=== PATIENT | female | born 1970 | race Caucasian/White ===

== ENCOUNTER 2016-10-09 04:20 | Emergency (ER) ==
[2016-10-09 04:36] VITALS: BP 127/77
[2016-10-09] MEDS ORDERED: TORADOL IM ONE (05:29)
[2016-10-09] MEDS ORDERED: PERCOCET-10 PO ONE (05:30)
--- NOTE | 2016-10-09 05:32 | PROVIDER DOCUMENTATION ---
HPI-EENT General - General Chief Complaint: Toothache Stated Complaint: TOOTHACHE Time Seen by Provider: 10/09/16 04:47 Source: patient Allergies/Adverse Reactions: Patient Allergies Allergy/AdvReac Type Severity Reaction Status Date / Time diphenhydramine HCl * Allergy SWELLING Verified 08/05/16 22:22 [From Benadryl] promethazine HCl * Allergy RASH Verified 08/05/16 22:22 [From Phenergan] Home Medications: Home Medication List Medication Instructions Recorded Confirmed Last Taken Type Gabapentin [Neurontin] 1,200 mg PO HS 06/04/15 10/09/16 1 Day Ago History Pramipexole [Mirapex] 6 mg PO HS 06/04/15 10/09/16 1 Day Ago History Duloxetine [Cymbalta] 60 mg PO HS 08/25/15 10/09/16 1 Day Ago History Alprazolam [Xanax] 1 mg PO BID PRN PRN 05/04/16 10/09/16 07/09/16 History Diphenoxylate/Atropine [Lomotil] 1 tab PO PRN PRN 07/09/16 10/09/16 Unknown History Liraglutide [Victoza] 0.3 ml SUBQ DAILY #5 pen.injctr 07/09/16 10/09/16 Unknown Rx Ondansetron [Zofran Odt] 4 mg PO Q4-6H PRN PRN #12 07/09/16 10/09/16 Unknown Rx tab.rapdis Fluconazole [Diflucan] 150 mg PO DAILY #2 tablet 07/24/16 10/09/16 Unknown Rx Clindamycin [Cleocin] 300 mg PO Q6HR #40 capsule 08/05/16 10/09/16 Unknown Rx - History of Present Illness-EENT General EENT Location: reports: mouth (dental) Quality of Pain: reports: aching Severity: reports: moderate Onset/Duration: reports: other (chronic) Timing: reports: still present Prearrival Treatment: Initiated prescription meds (clindamycin) Associated Symptoms: reports: facial pain/swelling Similar Symptoms Previously?: Yes Recently seen or treated by another doctor?: Yes (frequent ER visits) - Eyes Apparent Injury?: No - Ears Ear Problem Symptoms: reports: none Ear Problem Context: reports: none - Throat/Dental Throat/Dental Problem Symptoms: reports: toothache. denies: jaw pain, sore throat, swelling of jaw/face, trouble breathing, throat swelling, unable to swallow Throat/Dental Problem Context: reports: dental decay Recently seen a dentist or have an appointment?: No ("don't have the money") Review of Systems - Adult - REVIEW OF SYSTEMS - ADULT Constitutional: reports: no symptoms reported Eyes: reports: no symptoms reported Ears, Nose, Mouth & Throat: reports: mouth/dental pain Cardiovascular: reports: no symptoms reported Respiratory: reports: no symptoms reported Gastrointestinal: reports: no symptoms reported Genitourinary: reports: no symptoms reported Musculoskeletal: reports: no symptoms reported Integumentary: reports: no symptoms reported Neurological: reports: no symptoms reported Psychiatric: reports: no symptoms reported Endocrine: reports: no symptoms reported Hematologic/Lymphatic: reports: no symptoms reported Allergic/Immunologic: reports: no symptoms reported All Other Systems: Reviewed and Negative Past History - Adult - PAST MEDICAL HISTORY-ADULT Review of Records: reports: Old Records Reviewed, Nursing Assessment Review, Medications Reviewed, Social history reviewed & non-contributory. Major Childhood Illnesses: reports: denies history Cardiovascular: reports: denies history Respiratory: reports: asthma Gastrointestinal: reports: cancer (rectal) Obstetrical/Gynecological: reports: denies history Genitourinary: reports: denies history Musculoskeletal: reports: fibromyalgia Neurological: reports: other (fibromyalgia) Endocrine/Immune: reports: Diabetes Other Conditions: reports: denies history - PRIOR SURGERIES/PROCEDURES Surgical/Procedure History: reports: appendectomy, cholecystectomy, hysterectomy , indwelling device (port), hernia repair, other (rectal polyps) - PRIOR HOSPITALIZATIONS Prior Hospitalizations: reports: for similar symptoms - IMMUNIZATION STATUS Childhood Immunizations: See Nurse Assessment Flu Vaccine: See Nurse Assessment - FAMILY HISTORY Family History: reviewed, not pertinent Physical Exam- EENT - Physical Exam EENT Initial Vital Signs Reviewed: Yes General Appearance: mild distress Eye Exam: bilateral eye: normal inspection, PERRL, EOMI Ear Exam: bilateral ear: auricle normal, canal normal, TM normal Nasal Exam: normal inspection Throat Exam: pharynx normal, dental tenderness (R upper molar). negative: mandibular swelling, maxillary swelling, pharynx swelling Neck: non-tender, full range of motion, supple. negative: lymphadenopathy Respiratory: chest non-tender, lungs clear Cardiovascular: normal peripheral pulses, regular rate, rhythm, no edema Abdominal Exam: normal bowel sounds, non tender, soft Lymphatic: no adenopathy Back Exam: no CVA tenderness Extremity: normal range of motion, non-tender, normal gait, normal inspection, no pedal edema Integumentary: normal color, normal turgor Neurologic: grossly normal, no motor/sensory deficits Departure - Departure Time of Disposition Order: 05:36 DIAGNOSIS: Chronic dental pain Disposition: HOME 01 Certified Medical Emergency: Urgent Condition: Fair Additional Instructions: CALL [facility] OR FREE D[facility] CL[facility]IC IN [place] FOR CARE AT REDUCED
== END 2016-10-09 06:01 | disposition home or self-care (01) ==
LOC: P.ED 04:20
DX: G89.29 Other chronic pain (principal); K08.89 Other specified disorders of teeth and supporting structures; K02.9 Dental caries, unspecified; M79.7 Fibromyalgia; E11.9 Type 2 diabetes mellitus without complications; Z79.899 Other long term (current) drug therapy; Z85.048 Personal history of other malignant neoplasm of rectum, rectosigmoid junction, and anus
CPT/HCPCS: 96372; J1885

== ENCOUNTER 2017-03-14 01:38 | Observation (INO) ==
[2017-03-14] MEDS ORDERED: ASPIRIN PO STA (01:50)
[2017-03-14] MEDS ORDERED: NITROGLYCERIN TOP ONE (01:56)
[2017-03-14 02:09] LABS: MANUAL DIFF NEEDED? NO
--- NOTE | 2017-03-14 02:10 | EKG Report ---
Test Performed on : 03/14/2017 01:48:31 AM Test Reason : cp Blood Pressure : / mmHG Vent. Rate : 107 BPM Atrial Rate : 107 BPM P-R Int : 148 ms QRS Dur : 086 ms QT Int : 358 ms P-R-T Axes : 045 038 073 degrees QTc Int : 477 ms Sinus tachycardia. Otherwise normal ECG When compared with ECG of 29-APR-2014 13:34, No significant change was found Unconfirmed Result
[2017-03-14 02:13] LABS: BASO% 0.2 % (0.0-0.8); EOS# 0.12 X1000 (0.0-0.7); EOS% 1.3 % (0.0-10.0); HEMATOCRIT 43.2 % (37.0-47.0); IMM GRAN# 0.02 X1000 (0.0-0.04); IMM GRAN% 0.2 % (0.0-0.5); LYMPH# 1.99 X1000 (1.2-3.4); LYMPH% 21.9 % (20.5-51.1); MCH 30.7 PG (27-31); MCHC 34.7 g/dL (33-37); MCV 88.3 FL (81-99); MONO# 0.58 X1000 (0.11-0.59); MONO% 6.4 % (1.7-9.3); PLT 203 X1000 (130-400); RBC 4.89 XMIL (4.2-5.4)
[2017-03-14 02:26] LABS: PROTIME 11.3 Seconds (12.1-15.5)
[2017-03-14 02:27] LABS: AGAP 13; ALBUMIN 3.8 g/dL (3.5-5.0); ALKALINE PHOSPHATASE 121 U/L (32-104); BUN 10 mg/dL (8-22); CALCIUM 9.2 mg/dL (8.8-10.2); CHLORIDE 98 mmol/L (98-107); CK PROFILE 59 U/L (24-173); COSMO 277; GOT 151 U/L (10-30); GPT 38 U/L (10-36); MAGNESIUM 1.6 mg/dL (1.5-2.7); POTASSIUM 3.3 mmol/L (3.5-5.1); PTT PL 24.3 Seconds (22.6-43.9); SODIUM 134 mmol/L (136-145); TCO2 23 mmol/L (25-35); TOTAL PROTEIN 6.1 g/dL (6.3-8.3)
[2017-03-14 02:31] LABS: INR 0.76 (0.86-1.15)
--- NOTE | 2017-03-14 03:14 | PROVIDER DOCUMENTATION ---
HPI-Chest Pain - General Chief Complaint: Chest Pain Stated Complaint: chest pain Time Seen by Provider: 03/14/17 02:00 Source: patient Allergies/Adverse Reactions: Patient Allergies Allergy/AdvReac Type Severity Reaction Status Date / Time diphenhydramine HCl * Allergy SWELLING Verified 10/19/16 14:04 [From Benadryl] promethazine HCl * Allergy RASH Verified 10/19/16 14:04 [From Phenergan] Home Medications: Home Medication List Medication Instructions Recorded Confirmed Last Taken Type Pramipexole [Mirapex] 6 mg PO HS 06/04/15 03/14/17 1 Day Ago History Alprazolam [Xanax] 1 mg PO BID PRN PRN 05/04/16 03/14/17 07/09/16 History Liraglutide [Victoza] 0.3 ml SUBQ DAILY #5 pen.injctr 07/09/16 03/14/17 Unknown Rx Ondansetron [Zofran Odt] 4 mg PO Q4-6H PRN PRN #12 07/09/16 03/14/17 Unknown Rx tab.rapdis - History of Present Illness-CP Location: reports: epigastric Chest Pain Radiation: reports: back Quality of Pain: reports: sharp Severity in ED: mild Onset/Duration: just prior to arrival Timing: gone now, resolved prior to arrival (AFTER GIVEN NTG BY EMS) Modifying Factors: improves with: nothing Associated Symptoms: reports: nausea, shortness of breath Nitro Today/Relief: provided by EMS Aspirin Treatment Today: provided by EMS Prior Chest Pain/Cardiac Workup: reports: no prior cardiac workup Similar Symptoms Previously?: No Recently Seen Here or By Another Healthcare Provider: No Review of Systems - Adult - REVIEW OF SYSTEMS - ADULT Constitutional: reports: no symptoms reported Eyes: reports: no symptoms reported Ears, Nose, Mouth & Throat: reports: no symptoms reported Cardiovascular: reports: chest pain Respiratory: reports: no symptoms reported Gastrointestinal: reports: no symptoms reported Genitourinary: reports: no symptoms reported Musculoskeletal: reports: no symptoms reported Integumentary: reports: no symptoms reported Neurological: reports: no symptoms reported Psychiatric: reports: no symptoms reported Endocrine: reports: no symptoms reported Hematologic/Lymphatic: reports: no symptoms reported Allergic/Immunologic: reports: no symptoms reported All Other Systems: Reviewed and Negative Past History - Adult - PAST MEDICAL HISTORY-ADULT Review of Records: reports: Old Records Reviewed, Nursing Assessment Review, Medications Reviewed, Social history reviewed & non-contributory. Major Childhood Illnesses: reports: denies history Cardiovascular: reports: denies history Respiratory: reports: asthma Gastrointestinal: reports: cancer (rectal) Obstetrical/Gynecological: reports: denies history Genitourinary: reports: denies history Musculoskeletal: reports: fibromyalgia Neurological: reports: other (fibromyalgia) Endocrine/Immune: reports: Diabetes Diabetes Type: Type 2 Other Conditions: reports: denies history - PRIOR SURGERIES/PROCEDURES Surgical/Procedure History: reports: appendectomy, cholecystectomy, hysterectomy , indwelling device (port), hernia repair, other (rectal polyps) - PRIOR HOSPITALIZATIONS Prior Hospitalizations: reports: for similar symptoms - IMMUNIZATION STATUS Childhood Immunizations: See Nurse Assessment Flu Vaccine: See Nurse Assessment - FAMILY HISTORY Family History: reviewed, not pertinent Physical Exam-General - PHYSICAL EXAM-ADULT Initial Vital Signs Reviewed: Yes - CONSTITUTIONAL General Appearance: no apparent distress, lethargic - EYES Eyes: PERRL/EOMI, pink conjunctivae - HEAD, EARS, NOSE, MOUTH & THROAT HENMT: normocephalic/atraumatic, moist mucous membranes, normal ENT inspection, TMs normal, pharynx normal - NECK Neck: non-tender, full range of motion, supple - RESPIRATORY Respiratory: lungs clear, normal breath sounds - CARDIOVASCULAR Cardiovascular: normal peripheral pulses, regular rate, rhythm, no edema, no gallop, no JVD - GASTROINTESTINAL (ABDOMEN) Abdominal Exam: normal bowel sounds, non tender, soft. negative: tenderness - LYMPHATIC Lymphatic: no adenopathy - MUSCULOSKELETAL Back Exam: no CVA tenderness, no vertebral tenderness Extremity: normal range of motion, non-tender, normal gait Peripheral Pulses: radial (R): 3+, radial (L): 3+ - SKIN Integumentary: normal color, normal turgor, warm/dry - NEUROLOGIC Neurologic: grossly normal, no motor/sensory deficits - PSYCHIATRIC Psych/Mental Status: normal thought content, normal thought process, other ( VAGUE ANSWERS, SEEMS DRUGGED (though just woke up)) Progress - PLAN OF CARE/RESULTS Progress/Plan/Lab Results: Vital Signs - 8 hr 03/14/17 01:40 03/14/17 02:52 03/14/17 04:09 Temperature 98.5 F 98.2 F 98 F Pulse Rate 107 H 101 H 99 H Respiratory Rate 18 18 18 Blood Pressure 98/67 114/68 81/62 O2 Sat by Pulse Oximetry 100 100 97 Laboratory Results - last 24 hr 03/14/17 03/14/17 03/14/17 02:00 02:00 02:00 WBC RBC Hgb Hct MCV MCH MCHC RDW Std Deviation Plt Count MPV Immature Gran % (Auto) Neut % (Auto) Lymph % (Auto) [place] % (Auto) Eos % (Auto) Baso % (Auto) Immature Gran # (Auto) Neut # (Auto) Lymph # (Auto) [place] # (Auto) Eos # (Auto) Baso # (Auto) PT INR APTT (Factor Assay) D-Dimer Sodium 134 L Potassium 3.3 L Chloride 98 Carbon Dioxide 23 L Anion Gap 13 BUN 10 Creatinine 0.5 Estimated GFR/1.73 m2 > 60 BUN/Creatinine Ratio 20 Glucose 281 H Estimat Average Glucose Hemoglobin A1c Calculated Osmolality 277 Calcium 9.2 Magnesium 1.6 Total Bilirubin 0.90 AST 151 H ALT 38 H Alkaline Phosphatase 121 H Creatine Kinase 59 Troponin T < 0.010 Hlq-Q-Olxanoiwqck Pept 23 Total Protein 6.1 L Albumin 3.8 Globulin 2.0 Albumin/Globulin Ratio 2.0 03/14/17 03/14/17 03/14/17 02:00 02:00 02:00 WBC 9.10 RBC 4.89 Hgb 15.0 Hct 43.2 MCV 88.3 MCH 30.7 MCHC 34.7 RDW Std Deviation 12.8 Plt Count 203 MPV 10.0 Immature Gran % (Auto) 0.2 Neut % (Auto) 70.0 Lymph % (Auto) 21.9 [place] % (Auto) 6.4 Eos % (Auto) 1.3 Baso % (Auto) 0.2 Immature Gran # (Auto) 0.02 Neut # (Auto) 6.37 Lymph # (Auto) 1.99 [place] # (Auto) 0.58 Eos # (Auto) 0.12 Baso # (Auto) 0.02 PT 11.3 L INR 0.76 L APTT (Factor Assay) 24.3 D-Dimer 0.23 Sodium Potassium Chloride Carbon Dioxide Anion Gap BUN Creatinine Estimated GFR/1.73 m2 BUN/Creatinine Ratio Glucose Estimat Average Glucose 258 Hemoglobin A1c 10.6 H Calculated Osmolality Calcium Magnesium Total Bilirubin AST ALT Alkaline Phosphatase Creatine Kinase Troponin T Xfh-I-Bvcjlxmphyp Pept Total Protein Albumin Globulin Albumin/Globulin Ratio 03/14/17 03/14/17 04:22 04:22 WBC RBC Hgb Hct MCV MCH MCHC RDW Std Deviation Plt Count MPV Immature Gran % (Auto) Neut % (Auto) Lymph % (Auto) [place] % (Auto) Eos % (Auto) Baso % (Auto) Immature Gran # (Auto) Neut # (Auto) Lymph # (Auto) [place] # (Auto) Eos # (Auto) Baso # (Auto) PT INR APTT (Factor Assay) D-Dimer Sodium Potassium Chloride Carbon Dioxide Anion Gap BUN Creatinine Estimated GFR/1.73 m2 BUN/Creatinine Ratio Glucose Estimat Average Glucose Hemoglobin A1c Calculated Osmolality Calcium Magnesium Total Bilirubin AST ALT Alkaline Phosphatase Creatine Kinase 46 Troponin T < 0.010 Ojp-Q-Aepvnrdffwy Pept Total Protein Albumin Globulin Albumin/Globulin Ratio Orders Category Date Time Status Cardiac Monitoring DIRECTED Care 03/14/17 01:50 Active Oxygen Therapy- ED Nursing DIRECTED Care 03/14/17 01:50 Active Saline Loc NOW Care 03/14/17 01:50 Active CHEST-2 VIEWS [RAD] Stat Exams 03/14/17 01:50 Taken A1C [A1C HGB W EST AVG GLUCOSE] [CHEM] Stat Lab 03/14/17 02:00 Completed CBC WITH ELECTRONIC DIFF [HEME] Stat Lab 03/14/17 02:00 Completed CK PROFILE [SP CHEM] Stat Lab 03/14/17 02:00 Completed CK PROFILE [SP CHEM] Stat Lab 03/14/17 04:22 Completed COMPREHENSIVE METABOLIC PANEL [CHEM] Stat Lab 03/14/17 02:00 Completed D-DIMER PL [COAG] Stat Lab 03/14/17 02:00 Completed MAGNESIUM [CHEM] Stat Lab 03/14/17 02:00 Completed PRO B-NATRIURETIC PEPTIDE Stat Lab 03/14/17 02:00 Com[address]IME WITH INR PL [COAG] Stat Lab 03/14/17 02:[address] [COAG] Stat Lab 03/14/17 02:00 Completed TROPONIN T Stat Lab 03/14/17 02:00 Completed TROPONIN T Stat Lab 03/14/17 04:22 Completed [address]INE DRUG SCREEN PL Stat Lab 03/14/17 03:08 Uncollected Aspirin Med 03/14/17 01:50 Discontinued 325 mg PO STAT STA Nitroglycerin Med 08/23/17 01:56 Discontinued 1 inch TOP NOW ONE EKG [EKG] Stat Ther 03/14/17 02:08 Draft EKG [EKG] Stat Ther 03/14/17 04:15 Draft Result Diagrams: 03/14/17 02:00 03/14/17 02:00 - EKG 1 Time of EKG reading by physician:: 01:50 EKG Read and Signed by:: Camden Ramires EKG Interpretation (*Must complete 3 of following elements*): Normal Rate: 107 Rhythm: sinus Danube: normal QRS: normal CA Interval: normal ST Wave: normal Prior EKG Comparison: no prior EKG 2 Time of EKG reading by physician:: 04:39 EKG Read and Signed by:: Camden Ramires EKG Interpretation (*Must complete 3 of following elements*): Abnormal Rate: 94 Rhythm: SINUS Danube: normal QRS: NSIVCD, poor R wave progression CA Interval: normal ST Wave: non-specific ST changes (ANTERIORLY) - XRAY 1 XRAY Study: Chest Impression: Normal Departure - Departure Date of Disposition Decision: 03/14/17 Time of Disposition Decision: 05:30 DIAGNOSIS: Chest pain with high risk for cardiac etiology Disposition: ADMITTED INPATIENT 09 Certified Medical Emergency: Emergent Condition: Stable Referrals and Follow-Ups: None,PCP [Primary Care Provider] - - Critical Care Note This patient required my direct & personal management of CC.: No Attestation - Physician/ ANTONIA Attestation The physician spent face to face time with patient:: Yes Advanced Practice Provider documentation review:: Supervising physician onsite and consulted in the evaluation and care of this patient. The physician did have a face to face encounter with the patient.
[2017-03-14 04:04] LABS: HEMOGLOBIN A1C 10.6 % (4.8-6.0)
--- NOTE | 2017-03-14 04:39 | EKG Report ---
Test Performed on : 03/14/2017 04:36:13 AM Test Reason : pain Blood Pressure : / mmHG Vent. Rate : 094 BPM Atrial Rate : 094 BPM P-R Int : 160 ms QRS Dur : 090 ms QT Int : 366 ms P-R-T Axes : 044 043 057 degrees QTc Int : 457 ms Normal sinus rhythm. Possible Anterior infarct , age undetermined Abnormal ECG When compared with ECG of 14-MAR-2017 01:48, (Unconfirmed) No significant change was found Unconfirmed Result
[2017-03-14] MEDS ORDERED: NITROGLYCERIN SL PRN (05:53)
[2017-03-14] MEDS ORDERED: NS 1,000 ML IV ONE ×2 (05:53→06:23)
[2017-03-14] MEDS ORDERED: ZOFRAN IV PRN (05:53)
[2017-03-14] MEDS ORDERED: TYLENOL PO PRN (05:53)
--- NOTE | 2017-03-14 05:58 | Diag Imaging Result Doc PS360 ---
EXAM: CHEST-2 VIEWS HISTORY: CP TECHNIQUE: COMPARISON: 04/04/2016 FINDINGS: The lungs are well expanded. The heart is not enlarged. The vessels are not distended. There are no infiltrates. No pleural effusions. There is no right-sided portacatheter on the current exam. No free air beneath the diaphragm. IMPRESSION: No acute abnormality. Electronically signed by Darien Gomez 03/14/2017 5:55 AM
--- NOTE | 2017-03-14 08:06 | EKG Report ---
Test Performed on : 03/14/2017 07:50:50 AM Test Reason : CHEST PAIN Blood Pressure : / mmHG Vent. Rate : 094 BPM Atrial Rate : 094 BPM P-R Int : 158 ms QRS Dur : 086 ms QT Int : 372 ms P-R-T Axes : 048 042 059 degrees QTc Int : 465 ms Normal sinus rhythm. Normal ECG When compared with ECG of 14-MAR-2017 04:36, No significant change was found Confirmed by Yonatan Coelho MD ([id number]) on 03/28/2017 7:05:16 PM
[2017-03-14 09:49] LABS: UR AMPHETAMINES QUAL NONE DETECTED (NONE DETECT); UR BARBITUATES QUAL NONE DETECTED (NONE DETECT); UR BENZODIAZEPIN QUAL PRESUMPTIVE POSITIVE (NONE DETECT); UR CANNABINOIDS QUAL NONE DETECTED (NONE DETECT); UR COCAINE QUAL NONE DETECTED (NONE DETECT); UR MDMA QUAL NONE DETECTED (NONE DETECT); UR METHADONE QUAL NONE DETECTED (NONE DETECT); UR METHAMPHETAMINE QUAL NONE DETECTED (NONE DETECT); UR OPIATES QUAL NONE DETECTED (NONE DETECT); UR OXYCODONE QUAL NONE DETECTED (NONE DETECT); UR PCP QUAL NONE DETECTED (NONE DETECT); UR TCA QUAL NONE DETECTED (NONE DETECT)
[2017-03-14 10:23] LABS: BILIRUBIN URINE NEGATIVE (NEGATIVE); BLOOD URINE NEGATIVE (NEGATIVE); CLARITY SL. CLOUDY (CLEAR); COLOR AMBER; LEUKOCYTES URINE 1+ (NEGATIVE); NITRITE URINE NEGATIVE (NEGATIVE); PROTEIN URINE 1+(30 mg/dL) mg/dL (NEGATIVE); SP GRAVITY URINE 1.025; UROBILINOGEN URINE 1+(1 mg/dL)
[2017-03-14 10:27] LABS: URINE EPITHELIAL CELLS <10 /HPF (<10); URINE WBC <10 /HPF (<10)
[2017-03-14 10:36] LABS: URINE CULTURE PL NEEDED? NO; URINE SOURCE CLEAN CATCH
--- NOTE | 2017-03-14 14:55 | Diag Imaging Result Document ---
PROCEDURE NAME: MYOCARDIAL PERF SCAN, STR/REST - 03/14/2017 PROCEDURE: Exercise Cardiolite stress test. DESCRIPTION OF PROCEDURE IN DETAIL: Please see detailed stress test by Dr. Coelho. Patient exercised on the treadmill by Balaji protocol. Patient at target heart rate was injected with 11.5 mCi of Cardiolite for the rest phase, 33.8 mCi of Cardiolite for the stress phase. Gated SPECT images were obtained in standard views. Images revealed significant diaphragmatic and chest wall attenuation. There is normal myocardial perfusion. Left ventricular ejection fraction by gated SPECT was 73%. CONCLUSIONS: 1. Normal myocardial perfusion. 2. Left ventricular ejection fraction by gated SPECT of 73%. 3. Wall motion was normal. cc: Valentín Hernandez MD
[2017-03-14 15:04] VITALS: BP 120/78
--- NOTE | 2017-03-14 16:04 | HISTORY AND PHYSICAL ---
CHIEF COMPLAINT: Chest pain. HISTORY OF PRESENT ILLNESS: This is a 46-year-old female with a history of asthma and diabetes who presented to the emergency room complaining of a squeezing sharp type pain below her breast that went straight through to her back. She denied any palpitations, dizziness , any shortness of breath. She denies any prior episodes. Nitroglycerin paste was applied in route per EMS. The pain did relieve shortly after her arrival in the emergency room and nitroglycerin paste was removed at that time per the ER MD. She has had no recurrence of this pain. She denied nausea, vomiting , shortness of breath. PAST MEDICAL HISTORY: 1. Rectal cancer in 2014. 2. Diabetes mellitus, uncontrolled. 3. Asthma. 4. Migraines. 5. 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 PAST SURGICAL HISTORY: Appendectomy, cholecystectomy, hysterectomy, port placed , and port removed. SOCIAL HISTORY: She smokes 2 packs a day. She has occasional alcohol use. She denies illicit drug use. ALLERGIES: Benadryl which causes swelling, and Phenergan which causes a rash. HOME MEDICATIONS: Duloxatine 60 mg at bedtime, Victoza 0.3 subcutaneous daily, Xanax 1 mg b.i.d., and Mirapex 6 mg at bedtime. REVIEW OF SYSTEMS: A 14 point review of systems is discussed with patient with pertinent positives stated in HPI. She denied any dizziness, palpitations, cough, fever, chills, shortness of breath, dyspnea on exertion, orthopnea, PND, any nausea, vomiting, diarrhea , constipation, hematuria, dysuria, frequency, urgency. PHYSICAL EXAMINATION: GENERAL: This is a 46-year-old female who is sitting up in the bed, in no distress. VITAL SIGNS: Blood pressure is 130/75, with a heart rate of 95, respirations are 18, temperature is 97.7 degrees, with room air saturations of 99%. HEENT: Head is normocephalic, atraumatic. Pupils equal, round, react to light. EOMs are intact. Sclerae anicteric. Mucous membranes are moist. NECK: Supple. Trachea midline. CARDIOVASCULAR: Regular rate and rhythm. S1 and S2 appreciated. PULMONARY: Breath sounds are clear. No increased work of breathing noted. GASTROINTESTINAL: Abdomen is soft, nondistended, nontender with bowel sounds in all 4 quadrants. BACK: No CVAT. No spine tenderness. MUSCULOSKELETAL: Good range of motion of joints. NEUROLOGIC: She is alert and oriented x3. Cranial nerves 2-12 grossly intact. EXTREMITIES: No clubbing, cyanosis, or edema. Calves are nontender. Pulses are palpable x4. DIAGNOSTICS: WBC is 9.1, with hemoglobin 15, hematocrit 43.2, platelets 203, 000. Sodium is 134, potassium 3.3, BUN 10, creatinine 0.5, with a glucose of 281. Hemoglobin A1c is 10. Troponin is negative on multiple occasions. Urine drug screen is positive for benzodiazepines. Chest x-ray revealed no acute abnormality. ASSESSMENT: 1. Chest pain. Resolved. 2. Hypokalemia.- replete 3. Diabetes mellitus, uncontrolled, with a hemoglobin of 10.6. PBG/SSI 4. History of rectal cancer. aware. PLAN: She will be admitted to the hospital, placed on telemetry. She ruled out with enzymes. Therefore Lexiscan will be ordered. We will identify her home medications and continue as appropriate. We will give gentle hydration. Further treatments pending hospital course. Dictated by LOTUS Monahan for Ash Weaver MD cc: LOTUS Monahan MD [facility]
--- NOTE | 2017-03-16 17:22 | DISCHARGE SUMMARY ---
ADMISSION DATE: 03/14/2017 DISCHARGE DATE: 03/14/2017 Date of discharge 03/14/2017 - patient left AMA. DIAGNOSES: 1. Chest pain resolved. 2. Diabetes mellitus uncontrolled with a hemoglobin A1c of 10.6. 3. Hypokalemia. 4. History of rectal cancer in 2013. 5. History of migraine headaches. DIAGNOSTICS: 1. 03/14/2017 chest x-ray revealed no acute abnormality. 2. 03/14/2017 myocardial perfusion scan revealed normal myocardial perfusion. Left ventricular ejection fraction 73%. Wall motion normal. 3. EKG revealed sinus rhythm at a rate of [address]-T changes. MICROBIOLOGY: Urine culture revealed no growth. HOSPITAL COURSE: Ms. Beverly presented to the emergency room complaining of a sharp squeezing pain below her breast that went straight through to her back. She denies any accompanying symptoms, any aggravating or relieving symptoms. Nitroglycerin paste was applied shortly after arrival in the emergency room and was removed. She had no recurrence of pain. She denied any nausea or vomiting, palpitations, dizziness, syncope. As she ruled out with troponins, myocardial perfusion scan was performed which was negative. The patient returned to the room, it looks like about 130 after the stress test. She was fed a healthy heart diet about 2 o'clock and ate 100%. According to the chart, at about 3:30 the patient walked up to the desk and stated that she was leaving, and she would not allow the nursing staff to speak to her and it was documented that the tech stated that the patient pulled her IV out. No further instructions were given as the patient did leave AMA and did not allow anyone the chance to give her instructions. Dictated by LOTUS Monahan for Ash Weaver MD cc: LOTUS Monahan MD [facility]TDD
== END 2017-03-14 15:34 | disposition left against medical advice (07) ==
LOC: P.ED 01:38 → INTOOBSV 06:25 → P.MEDSURG 06:25
PROVIDERS: ATTEND Family Medicine

== ENCOUNTER 2018-08-02 09:57 | Inpatient (IN) ==
[2018-08-02] MEDS ORDERED: NS 1,000 ML IV ONE ×3 (10:09→11:43)
[2018-08-02] MEDS ORDERED: HUMULIN R IV ONE (10:09)
[2018-08-02] MEDS ORDERED: VANCOMYCIN 1 GM/NS 1 GM/250 ML IVPB IV ONE (10:10)
[2018-08-02] MEDS ORDERED: HUMULIN R (PARKWAY) ONE (10:26)
[2018-08-02 10:28] LABS: BE -12.3 mmoll (-3.0-3.0); BLOOD TYPE ARTERIAL; HCO3-(ACT) 15.2 mmoll (20.0-26.0); METHB 1.5 % (0.0-1.5); O2HB 93.2 % (95.0-99.0); PO2(98.6) 80 mmHg (60-100); SAMPLE BLOOD; SAO2 96.9 % (95.0-100.0); THB 18.3 g/dL (11.5-17.4); pH(98.6) 7.34 (7.35-7.45)
[2018-08-02 10:31] LABS: ALLEN TEST YES; MODALITY ROOM AIR; PCO2(98.6) 19 mmHg (35-45)
[2018-08-02 10:37] LABS: BASO# 0.03 X1000 (0.0-0.2); BASO% 0.3 % (0.0-0.8); HEMATOCRIT 52.8 % (37.0-47.0); HEMOGLOBIN 17.5 g/dL (12.0-16.0); IMM GRAN# 0.04 X1000 (0.0-0.04); IMM GRAN% 0.3 % (0.0-0.5); LYMPH# 1.25 X1000 (1.2-3.4); LYMPH% 10.5 % (20.5-51.1); MCH 30.3 PG (27-31); MCHC 33.1 g/dL (33-37); MCV 91.5 FL (81-99); MONO# 0.69 X1000 (0.11-0.59); MONO% 5.8 % (1.7-9.3); MPV 10.5 FL (7.4-10.4); NEUT# 9.86 X1000 (1.4-6.5); NEUT% 83.1 % (42.2-75.2); PLT 319 X1000 (130-400); RBC 5.77 XMIL (4.2-5.4); RDW 13.5 % (11.5-14.5); WBC 11.87 X1000 (4.8-10.8)
[2018-08-02] MEDS ORDERED: HUMULIN R 100 UNIT in NS 99 ML IV ONE (10:37)
[2018-08-02 10:41] LABS: ACETONE SERUM MODERATE (NEGATIVE)
[2018-08-02 10:46] LABS: INR 0.92; PROTIME 12.8 Seconds (11.0-16.0)
[2018-08-02 10:47] LABS: PTT 23.3 Seconds (22.3-41.8)
[2018-08-02 10:52] LABS: ESTIMATED GFR > 60
[2018-08-02 11:01] LABS: BILIRUBIN URINE NEGATIVE (NEGATIVE); BLOOD URINE TRACE (NEGATIVE); CLARITY CLEAR (CLEAR); COLOR YELLOW; KETONE URINE 3+(Large) mg/dL (NEGATIVE); LEUKOCYTES URINE NEGATIVE (NEGATIVE); NITRITE URINE NEGATIVE (NEGATIVE); SP GRAVITY URINE 1.015; URINE BACTERIA 1+ /HFP; URINE EPITHELIAL CELLS <10 /HPF (<10); URINE SOURCE CATH; URINE WBC <10 /HPF (<10); UROBILINOGEN URINE NORMAL
[2018-08-02 11:04] LABS: AGAP 29; ALBUMIN 4.2 g/dL (3.5-5.0); ALKALINE PHOSPHATASE 94 U/L (32-104); BUN 24 mg/dL (8-22); CALCIUM 9.6 mg/dL (8.8-10.2); CHLORIDE 95 mmol/L (98-107); CK PROFILE 31 U/L (24-173); COSMO 308; CREATININE 0.9 mg/dL (0.5-0.9); GOT 5 U/L (10-30); GPT 6 U/L (10-36); MAGNESIUM 2.1 mg/dL (1.5-2.7); PHOSPHORUS 4.5 mg/dL (2.7-4.5); SODIUM 137 mmol/L (136-145); TCO2 13 mmol/L (25-35); TOTAL PROTEIN 7.3 g/dL (6.3-8.3)
[2018-08-02 11:07] LABS: GLUCOSE 643 mg/dL (70-104)
--- NOTE | 2018-08-02 11:23 | Diag Imaging Result Doc PS360 ---
EXAM: CT HEAD W/O CONTRAST INDICATION: ams TECHNIQUE: This exam was performed using automated exposure control, adjustment of mA or kV according to patient size, and/or use of iterative reconstruction technique. COMPARISON: None. FINDINGS: There is no definite acute infarct given the limited sensitivity of CT versus MRI. There is no discrete intracranial mass, mass effect, or intracranial hemorrhage. A small superior scalp contusion on the left seen on the previous study has decreased in size. IMPRESSION: No evidence of acute intracranial pathology. Electronically signed by Roger Fung 08/02/2018 11:21 AM
--- NOTE | 2018-08-02 11:24 | Diag Imaging Result Doc PS360 ---
EXAM: CHEST-1 VIEW INDICATION: ams TECHNIQUE: 2 views COMPARISON: 07/23/2018 FINDINGS: The lungs are grossly clear. There is no discrete pleural fluid collection or pneumothorax. The cardiomediastinal silhouette and central vasculature are grossly unremarkable. IMPRESSION: No evidence of acute pathology by plain radiograph. Electronically signed by Roger Fung 08/02/2018 11:21 AM
[2018-08-02] MEDS ORDERED: ZOSYN 3.375 GM in NS 50 ML IV ONE (11:40)
[2018-08-02 11:42] LABS: UR AMPHETAMINES QUAL NONE DETECTED (NONE DETECT); UR BARBITUATES QUAL PRESUMPTIVE POSITIVE (NONE DETECT); UR BENZODIAZEPIN QUAL NONE DETECTED (NONE DETECT); UR CANNABINOIDS QUAL NONE DETECTED (NONE DETECT); UR COCAINE QUAL NONE DETECTED (NONE DETECT); UR METHADONE QUAL NONE DETECTED (NONE DETECT); UR METHAMPHETAMINE QUAL NONE DETECTED (NONE DETECT); UR OPIATES QUAL NONE DETECTED (NONE DETECT); UR OXYCODONE QUAL NONE DETECTED (NONE DETECT); UR PCP QUAL NONE DETECTED (NONE DETECT); UR PROPOXYPHENE QUAL NONE DETECTED (NONE DETECT); UR TCA QUAL NONE DETECTED (NONE DETECT)
--- NOTE | 2018-08-02 11:48 | PROVIDER DOCUMENTATION ---
This chart was entered by Deepa Orona Scribe, acting as scribe for Jose Roberto Nunn MD. HPI-General Adult - General Chief Complaint: Altered Mental Status Stated Complaint: AMS Time Seen by Provider: 08/02/18 10:02 Source: patient, EMS ([facility]) Unable to obtain history due to:: altered Allergies/Adverse Reactions: Patient Allergies Allergy/AdvReac Type Severity Reaction Status Date / Time diphenhydramine HCl * Allergy SWELLING Verified 08/02/18 10:09 [From Benadryl] promethazine HCl * Allergy RASH Verified 08/02/18 10:09 [From Phenergan] Home Medications: Home Medication List Medication Instructions Recorded Confirmed Last Taken Type Diphenoxylate HCl/Atropine 1 tab PO TID PRN 03/14/17 08/02/18 03/13/17 12:00 History [Diphenoxylate-Atrop 2.5-0.025] Ondansetron HCl [Zofran] 1 tab PO Q4H PRN PRN 07/23/18 07/30/18 Unknown History Ropinirole [Requip] 1 tab PO QHS 07/23/18 08/02/18 07/29/18 21:30 History Butalbital/APAP/Caffeine [Fioricet] 1 ea PO Q4H PRN PRN #20 tab 07/29/18 Unknown Rx Levetiracetam [Keppra] 500 mg PO BID #60 tab 07/29/18 08/02/18 07/29/18 21:30 Rx Acetazolamide E.r. [Diamox Sequels] 500 mg PO BID 07/30/18 08/02/18 Unknown History Glipizide E.r. [Glucotrol Xl] 2.5 mg PO DAILY 07/30/18 07/30/18 Unknown History Hydrocodone/Acetaminophen 1 tab PO TID 07/30/18 08/02/18 07/29/18 21:30 History [Hydrocodone-Acetamin 10-325 mg] Midodrine [Proamatine] 10 mg PO TID 08/02/18 08/02/18 Unknown History - History of Present Illness -Gen Adult Nature of Presenting Problems: 47 yowf per ems pt mother found er wandering in her room and when mother walked in pt urinated and defecated in the bedroom floor and then went back to bed. pt is not verbally answering questions but will shake head yes and no to answer dr nunn. pt is ill appearing on exam Location of Pain/Injury: reports: none Severity: reports: moderate Onset/Duration: reports: unsure Timing: reports: still present Context/Activities at Onset: reports: light activity Modifying Factors: improves with: nothing Associated Symptoms: reports: genitourinary problems (urinated and had BM in the floor of her bedroom). denies: back/neck pain, chest pain, EENT symptoms, fever/chills, shortness of breath Similar Symptoms Previously?: Yes Recently seen or treated by another doctor?: Yes (has been seen x4 in ed since 07/23/18) - Diabetes Related Context Context: reports: high blood sugar (444) Review of Systems - Adult - REVIEW OF SYSTEMS - ADULT ROS:: limited per condition Constitutional: denies: chills, fever Eyes: reports: no symptoms reported Ears, Nose, Mouth & Throat: reports: no symptoms reported Cardiovascular: denies: chest pain, palpitations, syncope Respiratory: denies: cough, wheezing Gastrointestinal: denies: diarrhea, nausea, vomiting Genitourinary: reports: see HPI, incontinence Musculoskeletal: denies: back pain, neck pain Integumentary: reports: no symptoms reported Neurological: reports: no symptoms reported Psychiatric: reports: no symptoms reported Endocrine: reports: no symptoms reported Hematologic/Lymphatic: reports: no symptoms reported Allergic/Immunologic: reports: no symptoms reported All Other Systems: Reviewed and Negative Past History - Adult - PAST MEDICAL HISTORY-ADULT Review of Records: reports: Old Records Reviewed, Nursing Assessment Review, Medications Reviewed, Social history reviewed & non-contributory. Major Childhood Illnesses: reports: denies history Cardiovascular: reports: denies history Respiratory: reports: asthma Gastrointestinal: reports: cancer (rectal) Obstetrical/Gynecological: reports: denies history Genitourinary: reports: denies history Musculoskeletal: reports: chronic pain, fibromyalgia Neurological: reports: Seizures/Epilepsy, other (fibromyalgia) Psychiatric: reports: depression Endocrine/Immune: reports: Diabetes Other Conditions: reports: denies history - PRIOR SURGERIES/PROCEDURES Surgical/Procedure History: reports: appendectomy, cholecystectomy, hysterectomy , indwelling device (port), hernia repair, other (rectal polyps) - PRIOR HOSPITALIZATIONS Prior Hospitalizations: reports: for similar symptoms - IMMUNIZATION STATUS Childhood Immunizations: See Nurse Assessment Flu Vaccine: See Nurse Assessment - FAMILY HISTORY Family History: reviewed, not pertinent - SOCIAL HISTORY Smoking: cigarettes, greater than 1 pack/day Provider spent 3-5 mins advising pt. on dangers of tobacco.: Discussed manners to quit use, and f/u contacts for add'l counseling. Substance Use: benzodiazepines Alcohol Use Frequency: never Living Situation: family (lives with mother) Physical Exam-General - PHYSICAL EXAM-ADULT Exam Limited by: pt is not speaking at this time Initial Vital Signs Reviewed: Yes (141/100 HR 122 O2 92% RA and FSBG 444) - CONSTITUTIONAL General Appearance: alert, mild distress, slow to respond - EYES Eyes: pale conjunctivae, sunken eyes - HEAD, EARS, NOSE, MOUTH & THROAT HENMT: negative: moist mucous membranes - NECK Neck: normal inspection - RESPIRATORY Respiratory: chest non-tender, normal breath sounds - CARDIOVASCULAR Cardiovascular: tachycardia (122) - CHEST (BREASTS) Chest/Breast: deferred - GASTROINTESTINAL (ABDOMEN) Abdominal Exam: normal bowel sounds, soft - GENITOURINARY Female Genitalia/Pelvic Exam: deferred Rectal Exam: deferred Hemoccult Exam: deferred - LYMPHATIC Lymphatic: no adenopathy - MUSCULOSKELETAL Extremity: other (mottled) - SKIN Integumentary: mottled (BLE). negative: normal turgor - NEUROLOGIC Neurologic: negative: facial droop, focal weakness, motor weakness - PSYCHIATRIC Psych/Mental Status: other (pt is answering by shaking her head yes or no on exam) Progress - PLAN OF CARE/RESULTS Progress/Plan/Lab Results: Vital Signs - 8 hr 08/02/18 10:01 Temperature 98.2 F Pulse Rate 122 H Respiratory Rate 22 Blood Pressure 141/100 O2 Sat by Pulse Oximetry 100 Orders Category Date Time Status Johns Cath Insertion ORDERED Care 08/02/18 10:05 Ordered Saline Loc NOW Care 08/02/18 10:06 Ordered CHEST-PORTABLE [RAD] Stat Exams 08/02/18 10:[address] HEAD W/O CONTRAST [CT] Stat Exams 08/02/18 10:08 Ordered ABG [RESP] Stat Lab 08/02/18 10:06 Ordered ACETONE SERUM [CHEM] Stat Lab 08/02/18 10:06 Uncollected ALCOHOL BLOOD Stat Lab 08/02/18 10:07 Uncollected BLOOD CULTURE [BLDCUL] Stat Lab 08/02/18 10:07 Ordered CBC WITH ELECTRONIC DIFF [HEME] Stat Lab 08/02/18 10:07 Uncollected CK PROFILE [SP CHEM] Stat Lab 08/02/18 10:07 Uncollected COMPREHENSIVE METABOLIC PANEL [CHEM] Stat Lab 08/02/18 10:07 Uncollected LACTATE, PLASMA [CHEM] Stat Lab 08/02/18 10:07 Uncollected MAGNESIUM [CHEM] Stat Lab 08/02/18 10:07 Uncollected PRO B-NATRIURETIC PEPTIDE Stat Lab 08/02/18 10:07 Uncollected PROTIME WITH INR [COAG] Stat Lab 08/02/18 10:07 Uncollected PTT [COAG] Stat Lab 08/02/18 10:07 Uncollected TROPONIN T Stat Lab 08/02/18 10:07 Uncollected TSH Stat Lab 08/02/18 10:[address] W/POSS RFLX CULT [URINALYSIS] Stat Lab 08/02/18 10:07 Uncollected URINE DRUG SCREEN PL Stat Lab 08/02/18 10:07 Uncollected phos [PHOSPHORUS] [CHEM] Stat Lab 08/02/18 10:07 Uncollected Insulin Human Regular [Humulin R] Med 08/02/18 10:09 Once 10 unit IV NOW ONE Ns 1000 ml IV Bolus X1 Med 08/02/18 10:09 Ordered 0.9% Sodium Chloride Inj [Ns] 1,000 ml IV 999 mls/hr EKG [EKG] Stat Ther 08/02/18 10:06 Ordered pt has been to the ed recently many times for possible seizure. pt in past has left AMA. ABG interpretation DKA with hypercapnia with elevated lactate 1041 Result Diagrams: 08/02/18 10:15 08/02/18 10:15 - REASSESSMENT Reassessment #1 Time Reassessed: 10:21 (pt is in bed awake but not speaking) Status: unchanged Reassessment #2 Time Reassessed: 10:42 (dr nunn at bedside ) Status: unchanged Reassessment #3 Time Reassessed: 11:44 Status: unchanged (placed on insulin drip, given more 30ml/kg IVNS bolus for sepsis. Given IV vanc/zosyn for sepsis as may have endocarditis as a source. still tachycardic, ill appearing and confused.) - XRAY 1 XRAY: Bilateral XRAY Study: Chest (EXAM: CHEST-1 VIEW INDICATION: ams TECHNIQUE: 2 views COMPARISON: 07/23/2018 FINDINGS: The lungs are grossly clear. There is no discrete pleural fluid collection or pneumothorax. The cardiomediastinal silhouette and central vasculature are grossly unremarkable. IMPRESSION: No evidence of acute pathology by plain radiograph. Electronically signed by Roger Fung 08/02/2018 11:21 AM 08/02/18 1121 Interpreting Physician: Roger Fung MD Dictated Date/Time: 08/02/18 1121 cc: Jose Roberto Nunn MD; None, PCP) - CT/MRI 1 CT Study: Head (EXAM: CT HEAD W/O CONTRAST INDICATION: ams TECHNIQUE: This exam was performed using automated exposure control, adjustment of mA or kV according to patient size, and/or use of iterative reconstruction technique. COMPARISON: None. FINDINGS: There is no definite acute infarct given the limited sensitivity of CT versus MRI. There is no discrete intracranial mass, mass effect, or intracranial hemorrhage. A small superior scalp contusion on the left seen on the previous study has decreased in size. IMPRESSION: No evidence of acute intracranial pathology. Electronically signed by Roger Fung 08/02/2018 11:21 AM 08/02/18 1121 Interpreting Physician: Roger Fung MD Dictated Date/Time: 08/02/18 1120 cc: Jose Roberto Nunn MD; None,PCP) - CONSULTS/PCP/HOSPITALIST Notification #1 *Consult/PCP/Hospitalist*: LOTUS Flor Time Discussed: 11:46 (Hospitalist, may need transfer to [facility]) Consult Disposition: Will see in ED Departure - Departure Date of Disposition Decision: 08/02/18 Time of Disposition Decision: 11:46 DIAGNOSIS: Tobacco use disorder, Substance abuse or dependence Sepsis Qualifiers: Sepsis type: sepsis due to unspecified organism Qualified Code(s): A41.9 - Sepsis, unspecified organism Diabetic ketoacidosis associated with type 2 diabetes mellitus Qualifiers: Diabetes mellitus complication detail: without coma Qualified Code(s): E11.10 - Type 2 diabetes mellitus with ketoacidosis without coma Altered mental status, unspecified Qualifiers: Altered mental status type: stupor Qualified Code(s): R40.1 - Stupor Disposition: ADMITTED INPATIENT 09 Certified Medical Emergency: Emergent Condition: Serious Referrals and Follow-Ups: None,PCP [Primary Care Provider] - - Critical Care Note This patient required my direct & personal management of CC.: Yes Total Time (mins): 39 Critical Care Statement: This patient required my direct personal management to treat or rule out processes, the absence of which, could potentiallly result in sudden, clinically significant life or limb threatening deterioration. Attestation - Physician/ ANTONIA Attestation Patient care was provided by Advanced Practice Provider:: No The physician spent face to face time with patient:: Yes Advanced Practice Provider documentation review:: Supervising physician onsite and consulted in the evaluation and care of this patient. The physician did have a face to face encounter with the patient. This chart was documented by the indicated scribe, (Deepa Orona Scribe) and accurately reflects the services I performed and decisions made by me, Jose Roberto Nunn MD, as attested by the provider's signature.
--- NOTE | 2018-08-02 11:54 | EKG Report ---
Test Performed on : 08/02/2018 11:36:21 AM Test Reason : ams Blood Pressure : / mmHG Vent. Rate : 126 BPM Atrial Rate : 126 BPM P-R Int : 130 ms QRS Dur : 076 ms QT Int : 316 ms P-R-T Axes : 051 062 083 degrees QTc Int : 457 ms Sinus tachycardia. Possible Left atrial enlargement Possible Anterior infarct (cited on or before 23-JUL-2018) Abnormal ECG When compared with ECG of 30-JUL-2018 12:11, (Unconfirmed) Vent. rate has increased BY 47 BPM Unconfirmed Result
--- NOTE | 2018-08-02 13:08 | ED EKG INTERP ---
EKG Interpretation - EKG Time of EKG reading by physician:: 12:00 EKG Read and Signed by:: Jose Roberto Nunn EKG Interpretation (*Must complete 3 of following elements*): Abnormal Rate: 126 Rhythm: sinus tachycardia [place]: normal QRS: poor R wave progression OK Interval: normal ST Wave: non-specific ST changes Attestation - Physician/ ANTONIA Attestation Patient care was provided by Advanced Practice Provider:: No The physician spent face to face time with patient:: Yes Advanced Practice Provider documentation review:: Supervising physician onsite and consulted in the evaluation and care of this patient. The physician did have a face to face encounter with the patient.
[2018-08-02] MEDS ORDERED: TYLENOL PR ONE (13:39)
[2018-08-02] MEDS ORDERED: ZOSYN 3.375 GM in NS 50 ML IV SCH (14:13)
[2018-08-02] MEDS ORDERED: ZOFRAN IV PRN ×2 (14:13→21:52)
[2018-08-02] MEDS ORDERED: HUMULIN R (PARKWAY) 100 UNITS in NS 100 ML IV SCH (14:13)
[2018-08-02] MEDS ORDERED: PROTONIX IV SCH (14:13)
[2018-08-02] MEDS ORDERED: SODIUM CHLORIDE 0.9% INJ SCH (14:13)
[2018-08-02] MEDS ORDERED: VANCOMYCIN IV PER PHARMACY MISC SCH (14:13)
[2018-08-02] MEDS ORDERED: VANCOMYCIN 1,350 MG in NS 250 ML IV ONE (15:30)
[2018-08-02] MEDS ORDERED: TYLENOL PR PRN ×3 (16:18→21:51)
--- NOTE | 2018-08-02 16:43 | ECHO REPORT ---
ORDER DATE: 08/02/2018 INTERPRETING PHYSICIAN: Dr. Warren REQUESTING PHYSICIAN: CLINICAL INDICATIONS: This is a 47-year-old female with sepsis, tachycardia, fever. M-MODE MEASUREMENTS: Right ventricle: cm. Left ventricle end diastole: 3.2 cm. Left ventricle end systole: 1.8 cm. Posterior wall: 1.1 cm. Interventricular septum: 1.1 cm. Left atrium: 3.5 cm. Aortic root: 3.6 cm. SUMMARY OF 2-DIMENSIONAL IMAGIN. The left ventricular function is normal. Ejection fraction is 75%. The patient is tachycardic. The ventricle is hyperdynamic. 2. The right ventricle appears to be normal. 3. Mitral valve looks normal. Color flow mapping indicates mild degree of regurgitation. 4. Pulse wave Doppler of mitral inflow shows reversal of the E and the A ratio. The ratio is 0.8. 5. Tissue Doppler of septal and lateral mitral annulus averages 8 cm. 6. There is no diastolic dysfunction. 7. Pulmonic valve looks normal. Color flow mapping is unremarkable. 8. Tricuspid valve looks normal. Color flow mapping is unremarkable. 9. Pulmonary pressure is estimated at 22 mmHg. 10.The aortic valve has 3 cusps, and they open normally. Color flow mapping is unremarkable. 11.Mitral valve looks normal. Color flow mapping shows no evidence of any significant degree of regurgitation. I do not see evidence of endocardial vegetation. I do not see evidence of any significant degree of pericardial effusion. CONCLUSIONS: In summary, this study shows: 1. Hyperdynamic left ventricle. Ejection fraction is 75%. 2. No evidence of any significant valvular abnormality. 3. No diastolic dysfunction. 4. No pulmonary hypertension. Clinical correlation is recommended. cc: MD Jasmina Early CRNP
[2018-08-02] MEDS ORDERED: HUMULIN R 100 UNIT in NS 99 ML IV SCH (21:39)
[2018-08-02] MEDS ORDERED: D50W SYRINGE IV PRN (21:39)
[2018-08-02] MEDS ORDERED: ZOFRAN PO PRN (21:44)
[2018-08-02] MEDS ORDERED: SODIUM BICARBONATE 8.4% 50 MEQ in D5W 250 ML IV PRN (21:44)
[2018-08-02] MEDS ORDERED: TYLENOL PO PRN (21:44)
[2018-08-02 22:23] LABS: HEMOGLOBIN A1C 13.1 % (4.8-6.0)
[2018-08-02 22:23] LABS: ALLEN TEST YES; BE -4.8 mmoll (-3.0-3.0); BLOOD TYPE ARTERIAL; HCO3-(ACT) 21.1 mmoll (20.0-26.0); METHB 1.2 % (0.0-1.5); O2(CT) 21.2 mL/dL (15.0-23.0); O2HB 94.8 % (95.0-99.0); PCO2(98.6) 30 mmHg (35-45); PO2(98.6) 83 mmHg (60-100); SAMPLE BLOOD; SAO2 98.5 % (95.0-100.0); THB 15.9 g/dL (11.5-17.4)
[2018-08-02 22:24] LABS: MODALITY ROOM AIR
[2018-08-02 22:40] LABS: AGAP 17; ALB/GLOB RATIO 1.8; ALBUMIN 3.9 g/dL (3.5-5.0); ALKALINE PHOSPHATASE 71 U/L (32-104); BUN 17 mg/dL (8-22); CALCIUM 8.7 mg/dL (8.8-10.2); CHLORIDE 113 mmol/L (98-107); COSMO 300; CREATININE 0.6 mg/dL (0.5-0.9); ESTIMATED GFR > 60; GLUCOSE 206 mg/dL (70-104); GOT 8 U/L (10-30); GPT 6 U/L (10-36); PHOSPHORUS 2.7 mg/dL (2.7-4.5); POTASSIUM 4.1 mmol/L (3.5-5.1); SODIUM 147 mmol/L (136-145); TCO2 17 mmol/L (25-35); TOTAL BILIRUBIN 1.47 mg/dL (0.20-1.00); TOTAL PROTEIN 6.1 g/dL (6.3-8.3)
[2018-08-02] MEDS ORDERED: ATIVAN IV ONE (22:49)
[2018-08-02] MEDS ORDERED: ATIVAN IV PRN (22:50)
[2018-08-02] MEDS: KEPPRA 500 MG in NS 100 ML IV SCH (23:14)
[2018-08-02] MEDS ORDERED: KEPPRA 500 MG in NS 100 ML IV SCH (23:15)
--- NOTE | 2018-08-03 00:27 | HISTORY AND PHYSICAL ---
CHIEF COMPLAINT: Altered mental status. HISTORY OF PRESENT ILLNESS: This is a 47-year-old female who presented to the emergency room via EMS after her mother found her walking around in the house. She squatted in the floor, voided, had a bowel movement and then went back to bed. The patient does not respond to commands. She moves extremities at random. She will not answer questions. She will intermittently shake her head yes or no, but this is not always appropriate to questions asked. There is no family at the bedside so all information is taken from the chart. 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 PAST SURGICAL HISTORY: Appendectomy, cholecystectomy, hysterectomy, port placed and removed. SOCIAL HISTORY: She smokes 2 packs a day. Has alcohol use. ALLERGIES: According to the chart, Benadryl and Phenergan. HOME MEDICATIONS: Unknown. A list will be obtained and we will restart as is appropriate. REVIEW OF SYSTEMS: Unable to obtain due to the patient's mental status. PHYSICAL EXAMINATION: GENERAL: This is a 47-year-old female who is lying in the bed in ICU in no distress. VITAL SIGNS: Blood pressure is 107/50 with respirations of 20, temperature is 100.9 degrees, room air saturations are 100%. EYES: Pupils are equal and react to light. Sclerae are anicteric. Mucous membranes are moist. NECK: Supple with trachea midline. CARDIOVASCULAR: Regular rate and rhythm. S1 and S2 are appreciated. She is tachycardic at 110 to 120s. Peripheral pulses. PULMONARY: Breath sounds are clear with no increased work of breathing noted. GASTROINTESTINAL: Abdomen is soft, nondistended, with bowel sounds in all 4 quadrants. SKIN: Warm and dry. Both lower extremities are mottled and she does have some mottling to her right and left lower quadrant. LABS: WBC is 11.8 with hemoglobin 17.5, hematocrit 52.8, platelets of 319,000. Sodium is 137, potassium 5, BUN 24, creatinine 0.9 with an initial glucose of 643. Troponin is negative. TSH is 0.58. Urine drug screen is presumptive positive for barbiturates. Acetone level is moderate. Blood cultures and urine cultures are pending. CT of the head reveals no evidence of acute intracranial pathology. Chest x-ray reveals no evidence of "intracranial" pathology. ASSESSMENT AND PLAN: 1. Diabetic ketoacidosis. The patient has been placed on DKA protocol in the emergency room which we will continue and trend labs. 2. Sepsis. Blood cultures and urine cultures were obtained. On the sepsis protocol, she received a bolus 30 mL/kg. She was given vancomycin and Zosyn which we will continue. 3. History of rectal cancer. Aware. 4. For deep venous thrombosis prophylaxis, we will use sequential compression devices as we are unsure of any injury to the patient, and for GI prophylaxis Protonix. We will continue of course neuro checks. Further treatments pending hospital course. Dictated by LOTUS Monahan for Ash Weaver MD This chart was documented by, LOTUS Monahan and accurately reflects the services performed, treatment plan and medical decisions as attested by the providers signature Ash Weaver MD. cc: LOTUS Monahan MD
[2018-08-03] MEDS: ZOSYN 3.375 GM in NS 50 ML IV SCH ×4 (00:30→17:19)
[2018-08-03] MEDS ORDERED: NS 1,000 ML ONE (00:41)
[2018-08-03 02:16] LABS: ALLEN TEST YES; BLOOD TYPE ARTERIAL; SAMPLE BLOOD; pH(98.6) 7.46 (7.35-7.45)
[2018-08-03 02:19] LABS: MODALITY ROOM AIR
[2018-08-03] MEDS ORDERED: POTASSIUM CHLORIDE 20 MEQ/SWI 20 MEQ/100 ML IVPB IV PRN (02:20)
[2018-08-03] MEDS ORDERED: POTASSIUM CHLORIDE 40 MEQ/SWI 40 MEQ/100 ML IVPB IV PRN (02:20)
[2018-08-03] MEDS ORDERED: TYLENOL PO PRN (02:20)
[2018-08-03] MEDS ORDERED: HUMULIN R IV ONE (02:20)
[2018-08-03] MEDS ORDERED: D50W SYRINGE IV PRN (02:20)
[2018-08-03] MEDS ORDERED: D5 NS 1,000 ML IV SCH (02:20)
[2018-08-03] MEDS ORDERED: SODIUM BICARBONATE 8.4% 50 MEQ in D5W 250 ML IV PRN (02:20)
[2018-08-03] MEDS ORDERED: ZOFRAN PO PRN (02:20)
[2018-08-03] MEDS ORDERED: MAGNESIUM SULFATE 2 GM/S.W.I. 2 GM/50 ML IVPB IV PRN (02:20)
[2018-08-03] MEDS ORDERED: HUMULIN R 100 UNIT in NS 99 ML IV SCH (02:20)
[2018-08-03] MEDS ORDERED: TYLENOL PR PRN (02:20)
[2018-08-03 02:24] LABS: BE -3.5 mmoll (-3.0-3.0); HCO3-(ACT) 22.2 mmoll (20.0-26.0); O2(CT) 21.8 mL/dL (15.0-23.0); O2HB 96.4 % (95.0-99.0); PCO2(98.6) 26 mmHg (35-45); PO2(98.6) 191 mmHg (60-100); SAO2 99.9 % (95.0-100.0); THB 15.8 g/dL (11.5-17.4)
[2018-08-03] MEDS: NS 1,000 ML IV SCH ×6 (02:30→09:58)
--- NOTE | 2018-08-03 03:06 | HISTORY AND PHYSICAL ---
ADDENDUM: Patient seen and examined by myself. Full note dictated and discussed with nurse practitioner. Patient presented to the hospital subsequently with nausea, vomiting, abdominal pain, was diagnosed with DKA. She does appear to be septic. We will admit her to the hospital, treat her for both sepsis and DKA, place her on insulin drip, continue to follow. Further orders as needed. Please see full note by nurse practitioner. cc: Ash Weaver MD
[2018-08-03] MEDS: PROTONIX IV SCH ×2 (03:10→15:56)
[2018-08-03] MEDS ORDERED: SODIUM CHLORIDE 0.9% INJ SCH (04:00)
[2018-08-03 05:19] LABS: ALLEN TEST YES; BE -4.4 mmoll (-3.0-3.0); BLOOD TYPE ARTERIAL; HCO3-(ACT) 21.4 mmoll (20.0-26.0); METHB 0.7 % (0.0-1.5); O2(CT) 21.8 mL/dL (15.0-23.0); O2HB 96.1 % (95.0-99.0); PCO2(98.6) 32 mmHg (35-45); PO2(98.6) 98 mmHg (60-100); SAMPLE BLOOD; SAO2 98.9 % (95.0-100.0); THB 16.1 g/dL (11.5-17.4); pH(98.6) 7.39 (7.35-7.45)
[2018-08-03 05:31] LABS: MODALITY ROOM AIR
[2018-08-03] MEDS: VANCOMYCIN 1 GM/NS 1 GM/250 ML IVPB IV SCH (05:33)
[2018-08-03] MEDS ORDERED: VANCOMYCIN 1 GM/NS 1 GM/250 ML IVPB IV SCH (06:00)
[2018-08-03 09:04] LABS: AGAP 15; BUN 17 mg/dL (8-22); CALCIUM 9.1 mg/dL (8.8-10.2); CHLORIDE 113 mmol/L (98-107); COSMO 298; CREATININE 0.5 mg/dL (0.5-0.9); ESTIMATED GFR > 60; GLUCOSE 134 mg/dL (70-104); MAGNESIUM 2.1 mg/dL (1.5-2.7); PHOSPHORUS 2.1 mg/dL (2.7-4.5); POTASSIUM 3.9 mmol/L (3.5-5.1); SODIUM 148 mmol/L (136-145); TCO2 20 mmol/L (25-35)
[2018-08-03 09:21] LABS: BASO# 0.03 X1000 (0.0-0.2); BASO% 0.3 % (0.0-0.8); EOS# 0.07 X1000 (0.0-0.7); EOS% 0.6 % (0.0-10.0); HEMATOCRIT 46.2 % (37.0-47.0); HEMOGLOBIN 15.2 g/dL (12.0-16.0); IMM GRAN# 0.02 X1000 (0.0-0.04); IMM GRAN% 0.2 % (0.0-0.5); LYMPH# 1.62 X1000 (1.2-3.4); LYMPH% 13.9 % (20.5-51.1); MCHC 32.9 g/dL (33-37); MCV 91.3 FL (81-99); MONO# 0.65 X1000 (0.11-0.59); MONO% 5.6 % (1.7-9.3); MPV 9.5 FL (7.4-10.4); NEUT# 9.23 X1000 (1.4-6.5); NEUT% 79.4 % (42.2-75.2); PLT 247 X1000 (130-400); RBC 5.06 XMIL (4.2-5.4); RDW 13.4 % (11.5-14.5); WBC 11.62 X1000 (4.8-10.8)
[2018-08-03] MEDS: KEPPRA 500 MG in NS 100 ML IV SCH ×2 (09:58→22:30)
[2018-08-03] MEDS ORDERED: LEVEMIR SUBQ ONE (10:02)
[2018-08-03] MEDS: HUMULIN R SUBQ SCH ×4 (10:28→21:16)
[2018-08-03] MEDS: D5W 1,000 ML IV SCH ×2 (10:33→23:45)
[2018-08-03] MEDS ORDERED: INSULIN PEN NEEDLES ONE (11:14)
[2018-08-03] MEDS ORDERED: NORCO-10 PO PRN (11:21)
--- NOTE | 2018-08-03 13:02 | PROGRESS NOTE ---
DATE: 08/03/2018 SUBJECTIVE: The patient is a little lethargic this morning. She is currently on an insulin drip. OBJECTIVE: Vital signs: Temperature is 98.6, blood pressure 137/74, heart rate 93, respirations 18, O2 saturation is 100% on room air. General: This is an elderly female lying in bed in no acute distress. Heart: S1 and S2 normal. Tachycardic. Lungs: Equal air entry bilaterally. No crackles. No rales. Abdomen with positive bowel sounds. Soft. Nontender and nondistended. Extremities: No edema. No cyanosis. Neurologic: The patient is awake but lethargic. DIAGNOSTIC DATA: White blood cell count is 11.6, hemoglobin 15, hematocrit 46, platelets 247. Sodium is 148, potassium 3.9, chloride 113, CO2 is 20, BUN is 17, creatinine 0.5, glucose 134. Phosphorus 2.1. ASSESSMENT AND PLAN: 1. Diabetic ketoacidosis. The anion gap has closed. We will transition the patient to long acting subcutaneous insulin. We will also start the patient on a clear liquid diet. The patient's hemoglobin A1c is 13.1. The patient reports that she is on oral diabetic medications and is not on insulin at home. 2. Urinary tract infection. The urine culture is growing gram-negative rods. Continue with IV antibiotic therapy. 3. Hypernatremia. We will change the patient's IV fluids D5W and monitor the sodium. 4. Seizure disorder. Continue on Keppra. 5. GI prophylaxis. Continue on IV Protonix. 6. DVT prophylaxis. We will start the patient on Lovenox. cc: Carmita Man MD
[2018-08-03] MEDS ORDERED: LEVEMIR SUBQ SCH (21:00)
[2018-08-04] MEDS: ZOSYN 3.375 GM in NS 50 ML IV SCH ×5 (00:06→23:33)
[2018-08-04] MEDS: HUMULIN R SUBQ SCH ×6 (02:00→22:32)
[2018-08-04] MEDS: ATIVAN IV PRN ×3 (02:14→23:33)
[2018-08-04] MEDS: PROTONIX IV SCH ×2 (03:42→17:38)
[2018-08-04] MEDS: VANCOMYCIN 1 GM/NS 1 GM/250 ML IVPB IV SCH (05:19)
[2018-08-04 05:45] LABS: HEMATOCRIT 40.8 % (37.0-47.0); HEMOGLOBIN 13.5 g/dL (12.0-16.0); MCH 30.7 PG (27-31); MCHC 33.1 g/dL (33-37); MCV 92.7 FL (81-99); MPV 9.7 FL (7.4-10.4); RBC 4.4 XMIL (4.2-5.4); RDW 13.1 % (11.5-14.5); WBC 7.99 X1000 (4.8-10.8)
[2018-08-04 06:20] LABS: AGAP 11; BUN 12 mg/dL (8-22); CALCIUM 8.6 mg/dL (8.8-10.2); CHLORIDE 108 mmol/L (98-107); COSMO 283; CREATININE 0.3 mg/dL (0.5-0.9); ESTIMATED GFR > 60; GLUCOSE 106 mg/dL (70-104); MAGNESIUM 1.7 mg/dL (1.5-2.7); POTASSIUM 3.1 mmol/L (3.5-5.1); SODIUM 142 mmol/L (136-145); TCO2 23 mmol/L (25-35)
[2018-08-04] MEDS ORDERED: MAGNESIUM SULFATE 2 GM/S.W.I. 2 GM/50 ML IVPB IV ONE (06:23)
[2018-08-04] MEDS ORDERED: KLOR-CON PO ONE (06:23)
[2018-08-04] MEDS ORDERED: LEVEMIR SUBQ SCH ×2 (09:00→21:00)
[2018-08-04] MEDS: LEVEMIR SUBQ SCH (09:12)
[2018-08-04] MEDS: LOVENOX SUBQ SCH (09:14)
--- NOTE | 2018-08-04 10:37 | PROGRESS NOTE ---
DATE: 08/04/2018 SUBJECTIVE: The patient is very tearful this morning. She states that she wants to go home. Otherwise, no acute events noted overnight. OBJECTIVE: Vital Signs: Temperature 97.2 degrees, blood pressure 84/57, heart rate 64, respirations 21, O2 saturation is 98% on room air. Urine output 1.2 L. General : This is a chronically ill-appearing, elderly female lying in bed in no acute distress. HEENT: Head normocephalic and atraumatic. Heart: S1 and S2 normal. Regular rate and rhythm. Lungs: Clear to auscultation bilaterally. No wheezing. No rales. No rhonchi. Abdomen: Positive bowel sounds. Soft, nontender, nondistended. Extremities: No edema. No cyanosis. Neurologic: The patient is alert and oriented x3. Labs: Sodium 142, potassium 3.1, chloride 108, CO2 23, BUN 12, creatinine 0.3, glucose 106, magnesium 1.7. ASSESSMENT AND PLAN: 1. Diabetic ketoacidosis. Resolved. The patient has been transitioned to long- acting insulin and her blood sugars have improved. 2. Uncontrolled insulin dependent DM. Continue on levemir BID. 3. Urinary tract infection secondary to Escherichia coli. The patient is currently on Zosyn. We will likely transition this to an oral medication. 4. Seizure disorder. Continue on Keppra. 5. Hypokalemia. We will replace the patient's potassium. 6. C.difficile colitis. Will start oral vancomycin. 7. Gastrointestinal prophylaxis. Continue on Protonix. 8. Disposition. We will transfer the patient out of the intensive care unit and monitor her blood sugars for another 24 hours. The patient should be stable for discharge home tomorrow. cc: MD MARITZA Durbin
[2018-08-04] MEDS: KEPPRA 500 MG in NS 100 ML IV SCH ×2 (11:34→23:17)
[2018-08-04] MEDS: NS 1,000 ML IV SCH (12:34)
[2018-08-04] MEDS: VANCOCIN PO SCH ×2 (17:38→23:16)
[2018-08-04] MEDS: CULTURELLE PO SCH (23:16)
[2018-08-05] MEDS: ZOSYN 3.375 GM in NS 50 ML IV SCH (05:05)
[2018-08-05] MEDS: PROTONIX IV SCH (05:06)
[2018-08-05] MEDS: NS 1,000 ML IV SCH (05:06)
[2018-08-05] MEDS: VANCOCIN PO SCH (05:07)
[2018-08-05] MEDS: HUMULIN R SUBQ SCH (06:17)
[2018-08-05 06:29] LABS: BASO# 0.03 X1000 (0.0-0.2); BASO% 0.6 % (0.0-0.8); EOS# 0.17 X1000 (0.0-0.7); EOS% 3.4 % (0.0-10.0); HEMATOCRIT 36.9 % (37.0-47.0); HEMOGLOBIN 12.1 g/dL (12.0-16.0); LYMPH# 1.62 X1000 (1.2-3.4); LYMPH% 32.2 % (20.5-51.1); MCH 30.3 PG (27-31); MCHC 32.8 g/dL (33-37); MCV 92.5 FL (81-99); MPV 9.8 FL (7.4-10.4); NEUT# 2.91 X1000 (1.4-6.5); NEUT% 57.8 % (42.2-75.2); PLT 201 X1000 (130-400); RBC 3.99 XMIL (4.2-5.4); RDW 12.6 % (11.5-14.5); WBC 5.03 X1000 (4.8-10.8)
[2018-08-05 07:24] LABS: AGAP 10; BUN 8 mg/dL (8-22); CALCIUM 8.5 mg/dL (8.8-10.2); CHLORIDE 112 mmol/L (98-107); COSMO 287; CREATININE 0.4 mg/dL (0.5-0.9); ESTIMATED GFR > 60; GLUCOSE 129 mg/dL (70-104); PHOSPHORUS 3.6 mg/dL (2.7-4.5); POTASSIUM 3.6 mmol/L (3.5-5.1); SODIUM 144 mmol/L (136-145); TCO2 22 mmol/L (25-35)
[2018-08-05 07:51] VITALS: BP 109/64
[2018-08-05] MEDS: CULTURELLE PO SCH (08:07)
[2018-08-05] MEDS: LOVENOX SUBQ SCH (08:07)
[2018-08-05] MEDS: LEVEMIR SUBQ SCH (08:17)
[2018-08-05] MEDS ORDERED: MAGNESIUM SULFATE 2 GM/S.W.I. 2 GM/50 ML IVPB IV ONE (08:23)
[2018-08-05] MEDS ORDERED: INSULIN PEN NEEDLES ONE (08:25)
[2018-08-05] MEDS ORDERED: 1/2 NS 1,000 ML IV SCH (08:30)
--- NOTE | 2018-08-05 12:30 | DISCHARGE SUMMARY ---
ADMISSION DATE: 08/02/2018 DISCHARGE DATE: 08/05/2018 FINAL DISCHARGE DIAGNOSES: 1. Diabetic ketoacidosis. 2. Clostridium difficile colitis. 3. Urinary tract infection secondary to Escherichia coli. 4. Seizure disorder. 5. Hypokalemia. 6. Restless legs syndrome. HOSPITAL COURSE: Ms. Beverly is a 47-year-old female with a history of poorly controlled diabetes and seizure disorder, who presented to the ER with a chief complaint of confusion. Upon further assessment, the patient was noted to have an initial glucose of 643 with anion gap metabolic acidosis. The patient was started on IV fluids and an insulin drip and transferred to the ICU. The urinalysis was done that came back positive for infection, so the patient was started on Zosyn. Eventually the urine culture grew out Escherichia coli. The patient was able to be weaned off of the insulin drip and was started on subcutaneous insulin. The patient was noted to have a hemoglobin A1c of 13.1. The patient reported that she is not on insulin at home and normally takes glipizide for blood sugar control. The patient improved and was transferred to the medical floor. However, the patient then developed large amounts of liquid stool. The stool was tested and came back positive for Clostridium difficile colitis. The patient was then started on oral vancomycin today. Today, the patient was noted to be very upset and anxious and stated that she wanted to leave the hospital against medical advice. It was explained to the patient that she is not medically stable to leave the hospital. She is still under care for her Clostridium difficile colitis and she runs the risk of making her family members sick as well as severe dehydration from the copious amounts of diarrhea that she is still having. The patient stated that she understood and still insisted on leaving against medical advice. The patient was advised to return to the ER if she changed her mind. cc: Carmita Man MD
== END 2018-08-05 09:30 | disposition left against medical advice (07) | DRG 637 ==
LOC: P.ED 09:57 → ICU 18:39 → SUATTDRO 18:39 → 3N 08-04 10:07
PROVIDERS: ATTEND Internal Medicine
CPT/HCPCS: 51702; 70450; 71010; 71045; 80048; 80053; 80104; 80301; 80305; 80307; 80320; 81001; 82009; 82055; 82140; 82550; 82805; 82948; 83036; 83605; 83630; 83735; 83880; 84100; 84443; 84484; 85025; 85027; 85610; 85730; 87040; 87045; 87046; 87077; 87088; 87186; 87205; 87324; 87449; 89055; 93005; 93306; 96361; 96365; 96366; 96368; 96374; 96375; 99284; 99285; A9270; C9113; G0431; G0434; G0477; G0480; G6040; J1650; J1815; J1885; J1953; J2060; J2405; J2543; J3370; J3475; J3480; J7030; J7050; J7070; S0164; XXXXX

== ENCOUNTER 2018-11-05 14:23 | Inpatient (IN) ==
[2018-11-05] MEDS ORDERED: NS 1,000 ML IV ONE (14:56)
[2018-11-05 15:07] LABS: BASO# 0.02 X1000 (0.0-0.2); BASO% 0.3 % (0.0-0.8); EOS# 0.19 X1000 (0.0-0.7); EOS% 2.7 % (0.0-10.0); HEMATOCRIT 38.1 % (37.0-47.0); HEMOGLOBIN 12.7 g/dL (12.0-16.0); IMM GRAN# 0.01 X1000 (0.0-0.04); IMM GRAN% 0.1 % (0.0-0.5); LYMPH# 1.19 X1000 (1.2-3.4); LYMPH% 16.9 % (20.5-51.1); MCH 29.1 PG (27-31); MCHC 33.3 g/dL (33-37); MCV 87.4 FL (81-99); MONO% 7.1 % (1.7-9.3); MPV 9.6 FL (7.4-10.4); NEUT# 5.12 X1000 (1.4-6.5); NEUT% 72.9 % (42.2-75.2); PLT 201 X1000 (130-400); RBC 4.36 XMIL (4.2-5.4); RDW 12.6 % (11.5-14.5); WBC 7.03 X1000 (4.8-10.8)
[2018-11-05 15:11] LABS: INR 0.95; PROTIME 13.2 Seconds (11.0-16.0)
[2018-11-05 15:12] LABS: PTT 31.3 Seconds (22.3-41.8)
[2018-11-05 15:14] LABS: AMYLASE 73 U/L (20-200); LIPASE 85 U/L (13-60)
[2018-11-05 15:21] LABS: URINE SOURCE CLEAN CATCH
[2018-11-05 15:22] LABS: AGAP 14; ALBUMIN 3.7 g/dL (3.5-5.0); ALKALINE PHOSPHATASE 133 U/L (32-104); BUN 9 mg/dL (8-22); CALCIUM 8.3 mg/dL (8.8-10.2); CHLORIDE 102 mmol/L (98-107); COSMO 275; CREATININE 0.4 mg/dL (0.5-0.9); ESTIMATED GFR > 60; GLUCOSE 104 mg/dL (70-104); GOT 119 U/L (10-30); GPT 29 U/L (10-36); POTASSIUM 3.7 mmol/L (3.5-5.1); SODIUM 138 mmol/L (136-145); TCO2 23 mmol/L (25-35); TOTAL PROTEIN 6.3 g/dL (6.3-8.3)
[2018-11-05 15:25] LABS: BILIRUBIN URINE 1+ (NEGATIVE); BLOOD URINE NEGATIVE (NEGATIVE); CLARITY SL. CLOUDY (CLEAR); COLOR AMBER; GLUCOSE URINE NEGATIVE (NEGATIVE); KETONE URINE 1+(Small) mg/dL (NEGATIVE); LEUKOCYTES URINE 2+ (NEGATIVE); NITRITE URINE NEGATIVE (NEGATIVE); PROTEIN URINE 2+(100 mg/dL) mg/dL (NEGATIVE); UROBILINOGEN URINE 4 mg/dL
--- NOTE | 2018-11-05 15:34 | Diag Imaging Result Doc PS360 ---
EXAM: CHEST-PORTABLE HISTORY: epigastric pain TECHNIQUE: Portable chest COMPARISON: 08/02/2018 FINDINGS: The lungs are well expanded. The heart is not enlarged. The vessels are not distended. There are infiltrates in the lateral mid right lung. No effusion identified. IMPRESSION: Right-sided pneumonia Electronically signed by Darien Gomez 11/05/2018 3:31 PM
[2018-11-05] MEDS ORDERED: ROCEPHIN 1 GM in NS 50 ML IV ONE (17:06)
[2018-11-05] MEDS ORDERED: ZOFRAN IV PRN (18:16)
[2018-11-05] MEDS ORDERED: TYLENOL PO PRN (18:16)
[2018-11-05] MEDS ORDERED: NICODERM PATCH TD PRN (18:18)
--- NOTE | 2018-11-05 18:34 | HISTORY AND PHYSICAL ---
She presents to the emergency room complaining of epigastric pain that started about 2 hours prior to coming to the emergency room. She describes it as a cramping type pain with accompanying nausea. She denied any vomiting, any chest pain, any fevers or chills. Chest x-ray revealed right-sided pneumonia. She was given Rocephin in the emergency room and is being admitted for further evaluation and treatment. PAST MEDICAL HISTORY: 1. Diabetes mellitus uncontrolled. 2. Seizure disorder. 3. Asthma. 4. Migraines. 5. Rectal cancer in 2014. PAST SURGICAL HISTORY: Appendectomy, cholecystectomy, hysterectomy and port placement and removal. SOCIAL HISTORY: She smokes about 2 packs a day, she does drink alcohol but not on a social basis. She denies any illicit drug use. ALLERGIES: Benadryl and Phenergan which cause rash and swelling. HOME MEDICATIONS: A list will be obtained by the nursing staff and once verified will review and restart as appropriate. REVIEW OF SYSTEMS: Discussed with patient with pertinent positives stated in the HPI. She denied any syncope, dizziness, any fevers or chills, any chest pain, any palpitations, any vomiting, diarrhea, constipation, any black or bloody stools, any hematuria, dysuria, frequency, urgency. PHYSICAL EXAMINATION: GENERAL: This is a 48-year-old female who is lying in the bed in no distress. VITAL SIGNS: Blood pressure is 104/62 with a heart rate of 100, respirations are 16, temperature is 98.4 degrees with room air saturations 97%. HEENT: Pupils equal, round, react to light. EOMs are intact. Sclerae anicteric. Head is normocephalic, atraumatic. Mucous membranes are moist. NECK: Supple with trachea midline. CARDIOVASCULAR: Regular rate and rhythm. S1, S2 appreciated. She has no lower extremity edema. Calves are nontender bilateral. Peripheral pulses are palpable x4 extremities. PULMONARY: Breath sounds are diminished in the right with some crackles noted. Left is clear. Chest rises and falls symmetric with respiration. Chest wall is nontender to palpation. GASTROINTESTINAL: Abdomen is soft. She does have some epigastric and bilateral upper quadrant tenderness. She is nondistended with bowel sounds in all 4 quadrants. SKIN: Warm and dry with no rashes or lesions noted. NEUROLOGIC: She is alert, oriented x3. LABS: WBC 7 with hemoglobin 12.7, hematocrit 38.1 and platelets 201,000. Sodium is 138, potassium 3.7, BUN 9, creatinine 0.4 with a glucose of 104, alkaline phosphatase is 133 with AST of 119, ALT of 29, lipase is 85 with amylase 73. Urinalysis has 1-2+ protein, 1+ ketones. Blood cultures are pending. ASSESSMENT AND PLAN: 1. Pneumonia, right side. Blood cultures drawn in the emergency room. She was given Rocephin. We will continue Rocephin and will add azithromycin and follow, do incentive spirometer. 2. Epigastric pain. Lipase is slightly elevated at 85. Will give clear liquids. Repeat amylase and lipase in the morning. 3. History of uncontrolled diabetes mellitus. Patient is noncompliant with medications. She will be placed on pattern blood glucose with sliding scale insulin. 4. History of rectal cancer aware. 5. Tobacco use and abuse. A nicotine patch. 6. Nausea. Will give liquids and use Zofran. 7. For deep vein thrombosis prophylaxis will use SCDs and for gastrointestinal prophylaxis Protonix. Further treatments pending hospital course. Dictated by LOTUS Monahan for Ash Weaver MD cc: LOTUS Monahan MD
[2018-11-05] MEDS: ZITHROMAX PO SCH (19:06)
[2018-11-05] MEDS: SODIUM CHLORIDE 0.9% INJ SCH (19:07)
[2018-11-05] MEDS: PROTONIX IV SCH (19:07)
[2018-11-05] MEDS ORDERED: NS 250 ML IV ONE (19:10)
[2018-11-05] MEDS: NS 1,000 ML IV SCH (19:32)
--- NOTE | 2018-11-05 19:41 | HISTORY AND PHYSICAL ---
ADDENDUM: Patient was seen and examined by myself in the ER. Full note dictated and discussed with nurse practitioner. Patient presented to the hospital with epigastric pain. She denies any nausea, vomiting. Notes that she has had a history of diabetes and polycystic kidney disease. We will admit her to the hospital with right-sided pneumonia, and will continue to follow and place her on antibiotics. Please see full dictation. cc: Ash Weaver MD
[2018-11-05] MEDS ORDERED: REQUIP PO SCH (22:00)
[2018-11-05] MEDS ORDERED: GLUCOPHAGE PO SCH (22:00)
[2018-11-05] MEDS ORDERED: MELATONIN PO SCH (22:00)
[2018-11-05] MEDS ORDERED: REMERON PO SCH (22:00)
[2018-11-06] MEDS: KEPPRA PO SCH ×2 (02:56→11:32)
[2018-11-06] MEDS: GLUCOTROL XL PO SCH ×2 (02:57→11:33)
[2018-11-06] MEDS: ARICEPT PO SCH ×2 (02:57→11:33)
[2018-11-06] MEDS: NEURONTIN PO SCH ×2 (02:58→11:32)
[2018-11-06] MEDS: COLACE PO SCH ×3 (02:58→11:38)
[2018-11-06] MEDS: NAMENDA PO SCH ×2 (02:59→11:33)
[2018-11-06] MEDS: NS 1,000 ML IV SCH ×2 (02:59→11:11)
[2018-11-06 06:03] LABS: BASO# 0.01 X1000 (0.0-0.2); BASO% 0.3 % (0.0-0.8); EOS# 0.16 X1000 (0.0-0.7); EOS% 5.1 % (0.0-10.0); HEMATOCRIT 32.6 % (37.0-47.0); HEMOGLOBIN 10.5 g/dL (12.0-16.0); LYMPH% 28.8 % (20.5-51.1); MCH 28.5 PG (27-31); MCHC 32.2 g/dL (33-37); MCV 88.3 FL (81-99); MONO# 0.43 X1000 (0.11-0.59); MONO% 13.7 % (1.7-9.3); MPV 10.2 FL (7.4-10.4); NEUT# 1.63 X1000 (1.4-6.5); NEUT% 52.1 % (42.2-75.2); PLT 180 X1000 (130-400); RBC 3.69 XMIL (4.2-5.4); RDW 12.4 % (11.5-14.5); WBC 3.13 X1000 (4.8-10.8)
[2018-11-06 06:19] LABS: AMYLASE 66 U/L (20-200); LIPASE 40 U/L (13-60)
[2018-11-06 06:33] LABS: AGAP 9; ALBUMIN 3.2 g/dL (3.5-5.0); ALKALINE PHOSPHATASE 213 U/L (32-104); BUN 8 mg/dL (8-22); CHLORIDE 103 mmol/L (98-107); COSMO 281; CREATININE 0.4 mg/dL (0.5-0.9); ESTIMATED GFR > 60; GLUCOSE 264 mg/dL (70-104); GOT 183 U/L (10-30); GPT 151 U/L (10-36); POTASSIUM 3.6 mmol/L (3.5-5.1); SODIUM 137 mmol/L (136-145); TCO2 25 mmol/L (25-35); TOTAL PROTEIN 5.9 g/dL (6.3-8.3)
[2018-11-06] MEDS: HUMALOG (PARKWAY) SUBQ SCH ×4 (07:16→16:36)
[2018-11-06] MEDS ORDERED: PNEUMOVAX 23 IM ONE (09:00)
[2018-11-06] MEDS: SODIUM CHLORIDE 0.9% INJ SCH (09:10)
[2018-11-06] MEDS: PROTONIX IV SCH ×2 (09:10→19:34)
--- NOTE | 2018-11-06 09:35 | Diag Imaging Result Doc PS360 ---
US ABDOMEN-COMPLETE - 11/06/2018 INDICATION: elevated lft TECHNIQUE: Castro scale, color Doppler, and duplex evaluation of the abdomen was performed. COMPARISON: None FINDINGS: The liver appears normal.. No focal masses are appreciated. The IVC and aorta appear normal. The pancreas is unremarkable. The gallbladder is surgically absent. The common bile duct measures 11 mm. The portal vein is patent with hepatopetal flow. Spleen is unremarkable. The kidneys contain multiple cysts consistent with autosomal dominant polycystic kidney disease, similar to prior CT scan performed 05/08/2014. There is no hydronephrosis. IMPRESSION: 1.Prominent common bile duct likely related to postsurgical change. Correlation with laboratory values recommended. 2.Status post cholecystectomy. 3.Multiple simple and mildly complicated renal cysts compatible with autosomal dominant polycystic kidney disease. Electronically signed by Daxa Avilez 11/06/2018 9:33 AM
--- NOTE | 2018-11-06 09:58 | EKG Report ---
Test Performed on : 11/05/2018 2:19:03 PM Test Reason : ER Blood Pressure : / mmHG Vent. Rate : 103 BPM Atrial Rate : 103 BPM P-R Int : 130 ms QRS Dur : 090 ms QT Int : 356 ms P-R-T Axes : 044 035 072 degrees QTc Int : 466 ms Sinus tachycardia. with frequent premature ventricular complexes. in a pattern of bigeminy. Possible Left atrial enlargement Possible Anterior infarct , age undetermined Abnormal ECG No previous ECGs available Unconfirmed Result
[2018-11-06] MEDS: GLUCOPHAGE PO SCH ×2 (11:33→16:38)
[2018-11-06] MEDS: ZITHROMAX PO SCH (11:33)
[2018-11-06] MEDS ORDERED: ZOLOFT PO SCH (12:00)
[2018-11-06 14:26] VITALS: BP 100/69
[2018-11-06] MEDS ORDERED: ROCEPHIN 1 GM in NS 50 ML IV SCH (17:00)
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
[2018-11-07 09:23] LABS: HEPATITIS PROFILE ACUTE SEE COMMENTS
--- NOTE | 2018-11-11 13:10 | PROVIDER DOCUMENTATION ---
This chart was entered by Bri Ho Scribe, acting as scribe for Lee Rodarte MD. HPI-Abdominal Pain/GI Problem - General Chief Complaint: Epigastric Pain Stated Complaint: ABD PAIN, CHEST PAIN Time Seen by Provider: 11/05/18 14:50 Source: patient Allergies/Adverse Reactions: Patient Allergies Allergy/AdvReac Type Severity Reaction Status Date / Time diphenhydramine HCl * Allergy SWELLING Verified 08/02/18 10:09 [From Benadryl] promethazine HCl * Allergy RASH Verified 08/02/18 10:09 [From Phenergan] Home Medications: Home Medication List Medication Instructions Recorded Confirmed Last Taken Type Diphenoxylate HCl/Atropine 1 tab PO TID PRN 03/14/17 09/01/18 03/13/17 12:00 History [Diphenoxylate-Atrop 2.5-0.025] Ondansetron HCl [Zofran] 1 tab PO Q4H PRN PRN 07/23/18 09/01/18 Unknown History Ropinirole [Requip] 1 tab PO QHS 07/23/18 09/01/18 07/29/18 21:30 History Butalbital/APAP/Caffeine [Fioricet] 1 ea PO Q4H PRN PRN #20 tab 07/29/18 09/01/18 Unknown Rx Levetiracetam [Keppra] 500 mg PO BID #60 tab 07/29/18 09/01/18 07/29/18 21:30 Rx Acetazolamide E.r. [Diamox Sequels] 500 mg PO BID 07/30/18 09/01/18 Unknown History Glipizide E.r. [Glucotrol Xl] 2.5 mg PO DAILY 07/30/18 09/01/18 Unknown History Hydrocodone/Acetaminophen 1 tab PO TID 07/30/18 09/01/18 07/29/18 21:30 History [Hydrocodone-Acetamin 10-325 mg] Midodrine [Proamatine] 10 mg PO TID 08/02/18 09/01/18 Unknown History - History of Present Illness-ABD Nature of Presenting Problems: 48 yof presents to ED by EMS c/o generalized abdominal pain and nausea for 2hrs prior to arriving at ED. Pt denies SOB, chest pain or vomiting. Pt has hx of DM, poly cystic kidney disease and hyperlipidemia. Abdominal Pain Onset Location: reports: generalized abdomen Pain Radiation: reports: no radiation Onset/Duration: reports: 1-3 hours ago Timing: reports: still present Activities at Onset: reports: none Modifying Factors: improves with: nothing Associated Symptoms: reports: nausea Last BM: this morning Review of Systems - Adult - REVIEW OF SYSTEMS - ADULT Constitutional: reports: see HPI. denies: chills, fever, fatique Eyes: reports: no symptoms reported Ears, Nose, Mouth & Throat: reports: no symptoms reported Cardiovascular: reports: see HPI. denies: chest pain, edema, syncope Respiratory: reports: no symptoms reported Gastrointestinal: reports: see HPI, abdominal pain, nausea. denies: constipation, diarrhea, vomiting Genitourinary: reports: no symptoms reported Musculoskeletal: reports: no symptoms reported Integumentary: reports: no symptoms reported Neurological: reports: no symptoms reported Psychiatric: reports: no symptoms reported Endocrine: reports: no symptoms reported Hematologic/Lymphatic: reports: no symptoms reported Allergic/Immunologic: reports: no symptoms reported All Other Systems: Reviewed and Negative Past History - Adult - PAST MEDICAL HISTORY-ADULT Review of Records: reports: Nursing Assessment Review, Medications Reviewed, Social history reviewed & non-contributory. Major Childhood Illnesses: reports: denies history Cardiovascular: reports: denies history Respiratory: reports: asthma Gastrointestinal: reports: cancer (rectal) Obstetrical/Gynecological: reports: denies history Genitourinary: reports: denies history Musculoskeletal: reports: chronic pain, fibromyalgia Neurological: reports: Seizures/Epilepsy, other (fibromyalgia) Psychiatric: reports: depression Endocrine/Immune: reports: Diabetes Other Conditions: reports: denies history - PRIOR SURGERIES/PROCEDURES Surgical/Procedure History: reports: appendectomy, cholecystectomy, hysterectomy , indwelling device (port), hernia repair, other (rectal polyps) - PRIOR HOSPITALIZATIONS Prior Hospitalizations: reports: for similar symptoms - IMMUNIZATION STATUS Childhood Immunizations: See Nurse Assessment Flu Vaccine: See Nurse Assessment - FAMILY HISTORY Family History: reviewed, not pertinent - SOCIAL HISTORY Smoking: cigarettes, greater than 1 pack/day Provider spent 3-5 mins advising pt. on dangers of tobacco.: Discussed manners to quit use, and f/u contacts for add'l counseling. Physical Exam-General - PHYSICAL EXAM-ADULT Initial Vital Signs Reviewed: Yes - CONSTITUTIONAL General Appearance: appears well, alert. negative: anxious, combative - EYES Eyes: PERRL/EOMI, pink conjunctivae. negative: photophobia - HEAD, EARS, NOSE, MOUTH & THROAT HENMT: moist mucous membranes, normal ENT inspection. negative: angioedema - NECK Neck: non-tender, full range of motion, supple, normal inspection. negative: Brudzinski's sign, carotid bruit - RESPIRATORY Respiratory: chest non-tender, no pleuratic chest pain, no respiratory distress, no accessory muscle use, crackles (right side). negative: rales, rhonchi - CARDIOVASCULAR Cardiovascular: normal peripheral pulses, no edema, no gallop, no JVD, no murmur , irregularly irregular. negative: regular rate, rhythm, bradycardia - GASTROINTESTINAL (ABDOMEN) Abdominal Exam: normal bowel sounds, non tender, soft, no organomegaly, tenderness (generalized). negative: rigid, rebound - LYMPHATIC Lymphatic: no adenopathy. negative: striations - MUSCULOSKELETAL Back Exam: normal inspection. negative: swelling Extremity: normal range of motion, normal inspection. negative: deformity - SKIN Integumentary: normal color, normal turgor, warm/dry. negative: diaphoresis, jaundice - NEUROLOGIC Neurologic: heating and cooling technician II-XII nml as tested, grossly normal, no motor/sensory deficits. negative: facial droop, focal weakness - PSYCHIATRIC Psych/Mental Status: normal mood/affect, normal thought content, normal thought process, oriented x 3. negative: anxious Progress - PLAN OF CARE/RESULTS Progress/Plan/Lab Results: Vital Signs - 8 hr 11/05/18 14:25 Temperature 98.4 F Pulse Rate 103 H Respiratory Rate 13 Blood Pressure 104/62 O2 Sat by Pulse Oximetry 97 Orders Category Date Time Status cxr [CHEST-1 VIEW] [RAD] Stat Exams 11/05/18 14:52 Ordered CBC WITH ELECTRONIC DIFF [HEME] Stat Lab 11/05/18 14:52 Uncollected COMPREHENSIVE METABOLIC PANEL [CHEM] Stat Lab 11/05/18 14:52 Uncollected URINALYSIS DIPSTICK ONLY PL [URINALYSIS] Stat Lab 11/05/18 14:52 Uncollected Result Diagrams: 11/05/18 14:43 11/05/18 14:43 - REASSESSMENT Reassessment #1 Time Reassessed: 17:10 Status: other (talked with pt about being admitted and she agreed) - EKG 1 Time of EKG reading by physician:: 14:19 EKG Read and Signed by:: Lee Rodarte EKG Interpretation (*Must complete 3 of following elements*): Abnormal (possible left atrial enlargement; possible anterior infarct, age undetermined) Rate: 103 Rhythm: sinus tachycardia QRS: PVC's (in a pattern of bigeminy) ST Wave: normal Prior EKG Comparison: changes noted (EKG from 08/02/18) - XRAY 1 XRAY: Bilateral XRAY Study: Chest Impression: See EMR Report (IMPRESSION: Right-sided pneumonia Electronically signed by Darien Jason 11/05/2018 3:31 PM) - CONSULTS/PCP/HOSPITALIST Notification #1 *Consult/PCP/Hospitalist*: Hospitalist Time Discussed: 17:06 Consult Disposition: Will see in ED, Admit Departure - Departure Date of Disposition Decision: 11/05/18 Time of Disposition Decision: 17:04 DIAGNOSIS: Arrhythmia, Pneumonia, UTI (urinary tract infection) Disposition: ADMITTED INPATIENT 09 Certified Medical Emergency: Emergent Condition: Fair Referrals and Follow-Ups: None,PCP [Primary Care Provider] - - Critical Care Note This patient required my direct & personal management of CC.: No Attestation - Physician/ ANTONIA Attestation Patient care was provided by Advanced Practice Provider:: No The physician spent face to face time with patient:: Yes Advanced Practice Provider documentation review:: Supervising physician onsite and consulted in the evaluation and care of this patient. The physician did have a face to face encounter with the patient. This chart was documented by the indicated scribe, (Bri Ho Scribe) and accurately reflects the services I performed and decisions made by me, Lee Rodarte MD, as attested by the provider's signature.
== END 2018-11-06 18:33 | disposition left against medical advice (07) | DRG 195 ==
LOC: P.ED 14:23 → P.MEDSURG 19:50
PROVIDERS: ATTEND Family Medicine
CPT/HCPCS: 71010; 71045; 76700; 80053; 80074; 81003; 82150; 82948; 83690; 83880; 84484; 85025; 85610; 85730; 87040; 93005; 96365; 96375; 99285; A9270; C9113; J0696; J1815; J7030; S0164; XXXXX